=== PATIENT | female | born 2000 | race Caucasian/White ===

== ENCOUNTER 2023-04-18 13:51 | Inpatient (IN) | payer BC, OTHER ==
[2023-04-18 14:57] VITALS: BMI 30.7
[2023-04-18] MEDS ORDERED: ELECTROLYTE-148 SOLN 1,000 ML IV SCH ×2 (15:15→17:15)
[2023-04-18 15:17] LABS: BASO % 0.1 % (0-2.0); HEMATOCRIT 35.8 % (32.4-45.2); HEMOGLOBIN 11.7 GM/dL (10.7-15.3); LYMPH % 8.8 % (8-40); MCH 27.4 pg (25.7-33.7); MCHC 32.7 g/dl (32.0-36.0); MEAN CELL VOLUME 83.9 fl (80-96); MEAN PLT VOLUME 9.6 fl (7.5-11.1); MONO % 6.3 % (3.8-10.2); NEUT % 84.8 % (42.8-82.8); PLATELET COUNT 293 10^3/uL (134-434); RBC 4.27 M/mm3 (3.60-5.2); RDW 15.9 % (11.6-15.6); WHITE BLOOD COUNT 17.5 K/mm3 (4.0-10.0)
[2023-04-18] MEDS ORDERED: FENTANYL/BUPIVACAINE/NS/PF - PCEA - 50 ML DISP.SYRIN EP ONE ×3 (15:20→20:47)
[2023-04-18 15:24] LABS: PROTHROMBIN TIME (PATIENT) 11.6 SEC (9.7-13.0)
[2023-04-18 15:26] LABS: ACTIVATED PTT 24.7 SECONDS (25.2-36.5)
[2023-04-18] MEDS: FENTANYL/BUPIVACAINE/NS/PF - PCEA - 50 ML DISP.SYRIN EP SCH ×2 (15:40→21:00)
[2023-04-18 15:42] LABS: CALCIUM 9.4 mg/dL (8.5-10.1)
[2023-04-18 15:43] LABS: BLOOD UREA NITROGEN 7.6 mg/dL (7-18)
[2023-04-18 15:46] LABS: CREATININE 0.7 mg/dL (0.55-1.3)
[2023-04-18] MEDS ORDERED: NALOXONE HCL 0.4 MG/ML VIAL IVPUSH PRN (15:55)
[2023-04-18] MEDS ORDERED: OXYTOCIN 20 UNITS in 0.9% NS 20 UNIT/1,000 ML INFUS.BAG IV ONE (20:07)
[2023-04-18] MEDS ORDERED: LIDOCAINE HCL 1% PRESERVATIVE FREE - 30ML VIAL ONE (20:21)
[2023-04-18] MEDS ORDERED: oxyCODONE HCL 5 MG TABLET PO PRN (22:30)
[2023-04-18] MEDS ORDERED: ACETAMINOPHEN 325 MG TABLET (FP) PO PRN (22:30)
[2023-04-18] MEDS ORDERED: BISACODYL 10 MG SUPP.RECT RC PRN (22:30)
[2023-04-18] MEDS ORDERED: METHYLERGONOVINE MALEATE 0.2 MG/1 ML AMP IM PRN (22:30)
[2023-04-18] MEDS ORDERED: BENZOCAINE 28 GM HEMORRHOIDAL OINTMENT TP PRN (22:30)
[2023-04-18] MEDS ORDERED: WITCH HAZEL 50% (TUCKS) 40 PAD/JAR PAD TP PRN (22:30)
[2023-04-18] MEDS ORDERED: BENZOCAINE 20% 57 GM BOTTLE TP PRN (22:30)
[2023-04-18] MEDS ORDERED: OXYTOCIN 20 UNITS in 0.9% NS 20 UNIT/1,000 ML INFUS.BAG IV SCH (22:30)
[2023-04-18 23:28] LABS: CORD BASE EXCESS -10.1 mmol/L (0-2); CORD HCO3 17.6 mmHg (20-29); CORD PCO2 44.6 mmHg (30-78); CORD pH 7.213 (7.14-7.44)
[2023-04-18 23:32] LABS: CORD HCO3 20.5 mmHg (20-29); CORD PCO2 48.1 mmHg (30-78); CORD pH 7.247 (7.14-7.44)
[2023-04-18] MEDS: IBUPROFEN 600 MG TABLET (FP) PO PRN (23:53)
[2023-04-19] MEDS: IBUPROFEN 600 MG TABLET (FP) PO PRN ×3 (07:51→20:44)
[2023-04-19 08:05] LABS: HEMATOCRIT 29.5 % (32.4-45.2); HEMOGLOBIN 9.4 GM/dL (10.7-15.3); MCH 27.5 pg (25.7-33.7); MCHC 31.7 g/dl (32.0-36.0); MEAN CELL VOLUME 86.7 fl (80-96); MEAN PLT VOLUME 9.3 fl (7.5-11.1); PLATELET COUNT 234 10^3/uL (134-434); RDW 15.6 % (11.6-15.6); WHITE BLOOD COUNT 25.8 K/mm3 (4.0-10.0)
[2023-04-19 09:31] LABS: ANISOCYTOSIS 2+; MACROCYTOSIS 0
[2023-04-19] MEDS: PRENATAL VITAMINS W/ FOLIC ACID TABLET (FP) PO SCH (09:57)
[2023-04-19] MEDS ORDERED: SENNOSIDES/DOCUSATE COMBO (SENNA PLUS) TABLET (UD) PO PRN (22:00)
[2023-04-19 22:27] VITALS: RESP 18
[2023-04-20] MEDS: IBUPROFEN 600 MG TABLET (FP) PO PRN ×4 (03:27→20:36)
[2023-04-20 08:46] LABS: BASO % 0.3 % (0-2.0); EOS % 0.8 % (0-4.5); HEMATOCRIT 27.3 % (32.4-45.2); LYMPH % 15.1 % (8-40); MCH 28.3 pg (25.7-33.7); MCHC 32.8 g/dl (32.0-36.0); MEAN CELL VOLUME 86.3 fl (80-96); MEAN PLT VOLUME 8.9 fl (7.5-11.1); MONO % 7.5 % (3.8-10.2); NEUT % 76.3 % (42.8-82.8); PLATELET COUNT 218 10^3/uL (134-434); RBC 3.17 M/mm3 (3.60-5.2); RDW 15.8 % (11.6-15.6); WHITE BLOOD COUNT 16.5 K/mm3 (4.0-10.0)
[2023-04-20] MEDS: PRENATAL VITAMINS W/ FOLIC ACID TABLET (FP) PO SCH (09:11)
[2023-04-21] MEDS: IBUPROFEN 600 MG TABLET (FP) PO PRN ×2 (01:38→09:04)
[2023-04-21 09:02] VITALS: BP 119/61; PULSE 71; TEMP 97.8
[2023-04-21] MEDS: PRENATAL VITAMINS W/ FOLIC ACID TABLET (FP) PO SCH (09:04)
[2023-04-21 09:15] LABS: HEMOGLOBIN 9.5 GM/dL (10.7-15.3); MCH 27.5 pg (25.7-33.7); MCHC 31.5 g/dl (32.0-36.0); MEAN CELL VOLUME 87.2 fl (80-96); MEAN PLT VOLUME 8.7 fl (7.5-11.1); PLATELET COUNT 230 10^3/uL (134-434); RBC 3.44 M/mm3 (3.60-5.2); RDW 16.1 % (11.6-15.6); WHITE BLOOD COUNT 12.9 K/mm3 (4.0-10.0)
== END 2023-04-21 15:37 | disposition home or self-care (01) | DRG 807 ==
LOC: JLDR 13:51 → J3W 23:40
PROVIDERS: ADMIT Obstetrics & Gynecology; ATTEND Obstetrics & Gynecology
PROC: 10E0XZZ Delivery of Products of Conception, External Approach (ICD-10-PCS; principal; 2023-04-18)
DX: O77.0 Labor and delivery complicated by meconium in amniotic fluid (principal); Z37.0 Single live birth; Z3A.37 37 weeks gestation of pregnancy
CPT/HCPCS: 36415; 36600; 80048; 82803; 85025; 85027; 85461; 85610; 85730; 86780; 86850; 86900; 86901; 96372; J2790